=== PATIENT | female | born 1995 | race Caucasian/White ===

== ENCOUNTER → 2018-11-18 | Outpatient (REF) | payer OTHER ==
[2018-11-18 16:27] LABS: CHLAMYDIA DNA AMPLIFICATION NEGATIVE (NEGATIVE); GC DNA AMPLIFICATION NEGATIVE (NEGATIVE)
== END ==
LOC: M LAB REF 13:35
PROVIDERS: ATTEND Advanced Practice Midwife
DX: Z11.3 Encounter for screening for infections with a predominantly sexual mode of transmission (principal); Z12.4 Encounter for screening for malignant neoplasm of cervix; R87.610 Atypical squamous cells of undetermined significance on cytologic smear of cervix (ASC-US)
CPT/HCPCS: 87491; 87591; 87624; G0123

== ENCOUNTER → 2018-12-22 | Outpatient (CLI) | payer OTHER | LOC: M SMT 09:28 | PROVIDERS: ATTEND Advanced Practice Midwife | DX: Z13.79 Encounter for other screening for genetic and chromosomal anomalies (principal) ==

== ENCOUNTER → 2019-01-05 | Outpatient (CLI) | payer OTHER ==
[2019-01-05 15:17] LABS: CHLAMYDIA DNA AMPLIFICATION NEGATIVE (NEGATIVE); GC DNA AMPLIFICATION NEGATIVE (NEGATIVE)
[2019-01-05 18:14] LABS: BASO % 0.3 % (0.0-1.0); EOS # 0.1 10^3/uL (0.0-0.50); EOS % 0.8 % (0.0-3.0); HEMATOCRIT 40.4 % (36.0-47.0); HEMOGLOBIN 13.6 g/dl (12.0-15.5); LYMPH # 1.9 10^3/uL (1.5-6.5); LYMPH % 16.5 % (24.0-44.0); MEAN CORPUSCULAR HGB CONC 33.7 g/dl (32.0-36.5); MONO # 0.8 10^3/uL (0.0-0.8); MONO % 6.8 % (0.0-5.0); NEUTROPHILS # 8.8 10^3/uL (1.8-7.7); PLATELET COUNT, AUTOMATED 309 10^3/uL (150-450); RED BLOOD COUNT 4.54 10^6/uL (4.00-5.40); WHITE BLOOD COUNT 11.7 10^3/uL (4.0-10.0)
[2019-01-06 22:57] LABS: HIV 1&2 SCREEN CENTAUR NEGATIVE (NEGATIVE)
[2019-01-07 12:40] LABS: HEPATITIS C VIRUS ABY INDEX < 0.0 INDEX (<0.8); RUBELLA IgG QUALITATIVE IMMUNE (IMMUNE)
== END ==
LOC: M SMT 11:07
PROVIDERS: ATTEND Advanced Practice Midwife
DX: Z34.81 Encounter for supervision of other normal pregnancy, first trimester (principal); Z3A.00 Weeks of gestation of pregnancy not specified

== ENCOUNTER → 2019-03-07 | Outpatient (CLI) | payer OTHER ==
[~2019-03-07] MED LIST: MACR100C43 PO
== END ==
LOC: M SMT 13:05
PROVIDERS: ATTEND Advanced Practice Midwife
DX: Z36.89 Encounter for other specified antenatal screening (principal)

== ENCOUNTER → 2019-03-25 | Outpatient (CLI) | payer OTHER ==
--- NOTE | 2019-03-25 16:11 | REP ---
Clinical: Anatomical evaluation. Comparison: None . Findings: Examination demonstrates a single live intrauterine in cephalic presentation. motion is identified by technologist. Placenta is noted the anterior and grade no on without evidence for placenta previa or abruption. Amniotic fluid volume is normal. Cervix measures 4.3 cm in length and appears closed. No evidence for nuchal cord. Gestational age by LMP 18 weeks 0 days with TRISTON 08/26/2019 . Gestational age by current measurements 18 weeks 6 days with TRISOTN 08/20/2019 . FHR equals 153 beats per minute. BPD 4.4 cm 19 weeks 3 days HC 18.9 cm 18 weeks 5 days AC 12.7 cm 18 weeks 2 days FL 3.1 cm 19 weeks 4 days HL 2.7 cm 18 weeks 5 days HC/AC ratio 1.26 Estimated weight 261 grams ( 82 percentile). Anatomical assessment demonstrates normal structures including cranium, choroid plexus, cavum, cerebellum/posterior fossa, facial features, lungs, four-chamber heart/ventricular outflow tracts, diaphragm, stomach, cord insertion/three-vessel cord, kidneys/bladder, spine, and extremities. Impression: Single live intrauterine in cephalic presentation demonstrating appropriate interval growth. Anatomical assessment is complete and normal. No gross abnormalities are identified. Electronically Signed by David Patterson MD 03/25/2019 04:02 P
== END ==
LOC: M RAD 14:41
PROVIDERS: ATTEND Advanced Practice Midwife
DX: Z34.02 Encounter for supervision of normal first pregnancy, second trimester (principal); Z3A.18 18 weeks gestation of pregnancy

== ENCOUNTER → 2019-05-25 | Outpatient (CLI) | payer OTHER ==
[2019-05-25 17:30] LABS: HEMATOCRIT 34.4 % (36.0-47.0); HEMOGLOBIN 11.3 g/dl (12.0-15.5); MEAN CORPUSCULAR HEMOGLOBIN 29.5 pg (27.0-33.0); MEAN CORPUSCULAR HGB CONC 32.8 g/dl (32.0-36.5); MEAN CORPUSCULAR VOLUME 89.8 fl (80.0-96.0); PLATELET COUNT, AUTOMATED 263 10^3/uL (150-450); RED BLOOD COUNT 3.83 10^6/uL (4.00-5.40); WHITE BLOOD COUNT 14.7 10^3/uL (4.0-10.0)
== END ==
LOC: M SMT 12:59
PROVIDERS: ATTEND Advanced Practice Midwife
DX: O99.612 Diseases of the digestive system complicating pregnancy, second trimester (principal); Z3A.00 Weeks of gestation of pregnancy not specified

== ENCOUNTER 2019-06-12 12:44 | Emergency (ER) | payer OTHER ==
[~2019-06-12] VITALS: Ht 157.5 cm; Wt 67.7 kg
[2019-06-12 13:31] LABS: BASO # 0.1 10^3/uL (0.0-0.2); BASO % 0.3 % (0.0-1.0); EOS # 0.1 10^3/uL (0.0-0.5); EOS % 0.5 % (0.0-3.0); HEMATOCRIT 37.4 % (36.0-47.0); HEMOGLOBIN 12.2 g/dl (12.0-15.5); LYMPH # 1.8 10^3/uL (1.5-5.0); LYMPH % 11.8 % (24.0-44.0); MEAN CORPUSCULAR HGB CONC 32.6 g/dl (32.0-36.5); MONO % 6.1 % (0.0-5.0); NEUTROPHILS # 12.4 10^3/uL (1.5-8.5); NEUTROPHILS % 80.5 % (36.0-66.0); PLATELET COUNT, AUTOMATED 271 10^3/uL (150-450); WHITE BLOOD COUNT 15.5 10^3/uL (4.0-10.0)
[2019-06-12 13:52] LABS: ALT/SGPT 20 U/L (12-78); BILIRUBIN,DIRECT 0.1 MG/DL (0.0-0.2); BILIRUBIN,TOTAL 0.4 MG/DL (0.2-1.0); BLOOD UREA NITROGEN 6 MG/DL (7-18); CALCIUM LEVEL 8.6 MG/DL (8.5-10.1); CARBON DIOXIDE LEVEL 25 MEQ/L (21-32); CHLORIDE LEVEL 108 MEQ/L (98-107); CREATININE FOR GFR 0.64 MG/DL (0.55-1.30); GLOMERULAR FILTRATION RATE > 60.0 (>60); GLUCOSE, FASTING 69 MG/DL (70-100); LIPASE 130 U/L (73-393); POTASSIUM SERUM 4.1 MEQ/L (3.5-5.1); SODIUM LEVEL 140 MEQ/L (136-145); TOTAL PROTEIN 6.7 GM/DL (6.4-8.2)
[2019-06-12] MEDS ORDERED: NS 1,000 ML IV ONE (14:30)
[2019-06-12] MEDS ORDERED: ONDANSETRON 4MG/2ML VIAL (J2405) IV ONE (14:30)
[2019-06-12] MEDS ORDERED: NITROFURANTOIN (MACROBID) 100 MG CAP PO ONE (15:30)
[2019-06-12] MEDS ORDERED: MACR100C43 PO (15:42)
[2019-06-12 15:51] VITALS: BP 111/70
[2019-06-12 16:36] LABS: CHLAMYDIA DNA AMPLIFICATION NEGATIVE (NEGATIVE); GC DNA AMPLIFICATION NEGATIVE (NEGATIVE)
--- NOTE | 2019-06-13 06:52 | REP ---
Obstetric sonography: History: Abdomen pain. 30 weeks. Findings: Scanning through the gravid uterus demonstrates a viable cephalic intrauterine fetus. motion is observed and heart rate is recorded at 137 beats per minute. An anterior grade 1 placenta is seen without evidence of previa or abruption. Amniotic fluid is subjectively normal. Closed cervical length is measured transabdominally at 3.4 cm. No extrauterine abnormalities observed. There has been appropriate interval growth. The following anatomic structures are again identified and felt to be unremarkable: cranium, cavum, lungs, four-chamber heart with left ventricular outflow tract view, diaphragm, left-sided stomach, abdominal wall cord insertion, three-vessel umbilical cord, kidneys and bladder, lower extremities. Biometry chart: BPD 7.5 cm = 30 weeks 1 day Head circumference 27.8 cm = 30 weeks 3 days Abdominal circumference 25.4 cm = 29 weeks 4 days Femur length 5.8 cm = 30 weeks 3 days Humeral length 5.2 cm = 30 weeks 1 day HC/AC ratio normal 1.09. Cephalic index normal 0.75. Estimated weight 1492 grams, 3 pounds 4 ounces, 58th percentile for 29 weeks 2 days. Amniotic fluid index normal 9.6 cm. S/D ratio in the umbilical cord artery by Doppler normal 2.83. Impression: Viable single intrauterine gestation at 30 weeks 1 day by today's composite sonographic criteria. Expected gestational age estimate based on prior sonography is 29 weeks 2 days. TRISTON by prior sonography August 26, 2019. There has been appropriate interval growth. Anterior placenta grade 1 without evidence of previa or abruption. Electronically Signed by Frederic Dasilva MD 06/13/2019 08:36 A
== END 2019-06-12 16:03 | disposition home or self-care (01) ==
LOC: M ED 12:44
DX: O23.43 Unspecified infection of urinary tract in pregnancy, third trimester (principal); O21.9 Vomiting of pregnancy, unspecified; Z87.42 Personal history of other diseases of the female genital tract; Z87.440 Personal history of urinary (tract) infections; Z3A.28 28 weeks gestation of pregnancy
CPT/HCPCS: 76816; 76820; 80048; 80076; 81001; 83690; 85025; 87086; 87210; 87661; 96374; 99284; J2405

== ENCOUNTER → 2019-06-13 | Outpatient (CLI) | payer OTHER | LOC: M LAB 08:06 | PROVIDERS: ATTEND Advanced Practice Midwife | DX: Z34.81 Encounter for supervision of other normal pregnancy, first trimester (principal) ==

== ENCOUNTER → 2019-07-08 | Outpatient (CLI) | payer OTHER ==
--- NOTE | 2019-07-08 16:41 | REP ---
OB ULTRASOUND: Real-time sonographic evaluation of gravid uterus performed. There is a single living intrauterine gestation, estimated gestational age 33 weeks 0 days, EDC 08/26/2019. Today's measurements indicate appropriate growth. BPD 90 mm = 36 weeks 2 days, over 95th percentile HC 306 mm = 34 weeks 1 day, 67th percentile AC 277 mm = 31 weeks 5 days, 31st percentile Femur length 64 mm = 33 weeks 0 days, 50th percentile HC/AC ratio 1.11, within normal range. Estimated weight 2040 grams, 39th percentile. Cervix is closed and measures 3.0 cm in length. heart rate 149 beats per minute. Amniotic fluid within normal limits, JOHN 10.7 within normal range of 8.3-24.5. S/D ratio 2.44 within normal range of 2.0-3.0. RI 0.59 within normal range of 0.59-0.75. Visualized anatomy includes four-chamber heart, ventricular outflow tracts, stomach, kidneys, and bladder, which are all grossly unremarkable. position vertex. Placenta anterior and grade 1 with no previa or abruption. Electronically Signed by Chilo Coelho MD 07/11/2019 04:13 P
== END ==
LOC: M RAD 11:29
PROVIDERS: ATTEND Obstetrics & Gynecology
DX: Z34.82 Encounter for supervision of other normal pregnancy, second trimester (principal)

== ENCOUNTER → 2019-07-25 | Outpatient (REF) | payer OTHER | LOC: M SFHCWAGY 10:01 | PROVIDERS: ATTEND Obstetrics & Gynecology | DX: Z36.85 Encounter for antenatal screening for Streptococcus B (principal) ==

== ENCOUNTER → 2019-08-18 | Outpatient (CLI) | payer OTHER ==
[~2019-08-18] MED LIST changes: +ACET-683 PO; +IBUP80TA PO
[2019-08-18 13:56] LABS: HEMOGLOBIN 12.1 g/dl (12.0-15.5); MEAN CORPUSCULAR HEMOGLOBIN 29.2 pg (27.0-33.0); MEAN CORPUSCULAR HGB CONC 33.6 g/dl (32.0-36.5); PLATELET COUNT, AUTOMATED 283 10^3/uL (150-450); RED BLOOD COUNT 4.14 10^6/uL (4.00-5.40); WHITE BLOOD COUNT 12.6 10^3/uL (4.0-10.0)
[2019-08-18 14:14] LABS: ALT/SGPT 11 U/L (12-78); BILIRUBIN,TOTAL 0.3 MG/DL (0.2-1.0); CREATININE FOR GFR 0.68 MG/DL (0.55-1.30); GLOMERULAR FILTRATION RATE > 60.0 (>60); LDH LACTATE DEHYDROGENASE 176 U/L (84-246); URIC ACID 4.9 MG/DL (2.6-6.0)
[2019-08-18 14:16] LABS: TOTAL PROTEIN,RANDOM URINE 29.1 MG/DL (0.0-12.0)
== END ==
LOC: M PLALAB 11:15
PROVIDERS: ATTEND Advanced Practice Midwife
DX: O16.3 Unspecified maternal hypertension, third trimester (principal)

== ENCOUNTER 2019-08-19 18:11 | Inpatient (IN) | payer OTHER ==
[~2019-08-19] VITALS: Ht 160 cm; Wt 71.2 kg
[~2019-08-19 18:11] MED LIST changes: -ACET-683 PO; -IBUP80TA PO
[2019-08-19 18:48] VITALS: BP 105/64
[2019-08-19] MEDS ORDERED: LACTATED RINGER'S 1000 ML IV STA ×2 (18:55→19:32)
[2019-08-19 19:23] LABS: HEMATOCRIT 35.9 % (36.0-47.0); HEMOGLOBIN 11.7 g/dl (12.0-15.5); MEAN CORPUSCULAR HEMOGLOBIN 28.3 pg (27.0-33.0); MEAN CORPUSCULAR HGB CONC 32.6 g/dl (32.0-36.5); MEAN CORPUSCULAR VOLUME 86.9 fl (80.0-96.0); PLATELET COUNT, AUTOMATED 265 10^3/uL (150-450); RED BLOOD COUNT 4.13 10^6/uL (4.00-5.40); WHITE BLOOD COUNT 12.9 10^3/uL (4.0-10.0)
[2019-08-19] MEDS: miSOPROStol 50 MCG 1/2 TAB (S0191) PO SCH (19:43)
[2019-08-19 19:50] LABS: ALT/SGPT 11 U/L (12-78); BILIRUBIN,TOTAL 0.3 MG/DL (0.2-1.0); BLOOD UREA NITROGEN 10 MG/DL (7-18); CARBON DIOXIDE LEVEL 23 MEQ/L (21-32); CHLORIDE LEVEL 110 MEQ/L (98-107); CREATININE FOR GFR 0.69 MG/DL (0.55-1.30); GLOMERULAR FILTRATION RATE > 60.0 (>60); GLUCOSE, FASTING 69 MG/DL (70-100); POTASSIUM SERUM 3.8 MEQ/L (3.5-5.1); SODIUM LEVEL 139 MEQ/L (136-145); TOTAL PROTEIN 6.5 GM/DL (6.4-8.2)
[2019-08-19 19:59] VITALS: BP 123/81
--- NOTE | 2019-08-19 20:10 | HPEPDOC ---
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 BREAST: . ABDOMEN: Gravid and non-tender to touch. FETUS: Is vertex (VTX) by sterile vaginal examination (SVE), fetus is vertex (VTX) by [place]. HEART RATE: Regular rate and rhythm. LUNGS: Clear to auscultation (CTA). EXTREMITIES: No edema. No clonus. Deep tendon reflexes (DTRs) + 2. Vital Signs/I&O Vital Signs Date Time Temp Pulse Resp B/P (MAP) Pulse Ox O2 Delivery O2 Flow Rate FiO2 08/19/19 18:48 98.1 103 18 105/64 (78) Laboratory Data 24H LABS Laboratory Tests 2 08/19/19 18:22: Serology Scanned Report Hepatitis B Testing 08/19/19 19:04: Nucleated Red Blood Cells % (auto) 0.0 08/19/19 19:20: Bedside Glucose (Misc Panel) 72 CBC/BMP Laboratory Tests 08/19/19 19:04 Pertinent Laboratoy Data Blood Type: A+ RBC Antibody Screen: Negative HIV: Negative Hepatitis B: Negative Hepatitis C: Negative Rapid Plasma Reagin: Nonreactive Rubella: Immune Chlamydia/Gonorrhea: Negative Group B Streptococcus: Negative Quad Screen Test: Negative Glucose Tolerance Test: 135 (3h bos831, 167, 159) Anatomy Ultrasound Ultrasound Date: Mar 25, 2019 Placenta Location: Anterior Normal Anatomy: Yes Placenta Previa: No Estimated Weight (grams): 261 Other Ultrasounds 01/05/19 dating & viability: 6wk+5days gestation Steroid Therapy Steroid Therapy: No Vaginal Examination Dilation: 2cm Effacement: 80% Station: -2 Cervical Consistency: Medium Cervical Position: Middle Presentation: Cephalic presentation Position: Vertex (occiput) Assessment Heart Rate (FHR): 140 Variability: Moderate Accelerations: Positive Decelerations: None Tocometer Contractions: Yes Frequency: irregular, every 2-5 min. Duration: greater than 60 seconds Strength: other (patient unaware of contractions) Assessment/Plan Assessment Sarah Naik is a 24-year-old (G)1 para (P)0-0-0-0 at 39+0 weeks by 6- week ultrasound. Presents to Labor and Delivery (L&D) for induction of labor. Patient is a diet-controlled gestational diabetic. Had one elevated blood pressure at her last visit 08/18/2019. Plan Admit and orient. 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 Diet: regular. Group B Streptococcus (GBS) negative. Labs and intravenous (IV) per unit protocol. Counseled on misoprostol, pitocin and induction of labor (IOL). Lactated Ringers (LR): Bolus 500 mL, then at 125 mL/hr. BG monitoring every 6 hours and PRN. Plans to labor ad saul Anticipate normal spontaneous delivery (). C-S as appropriate. Jaci Merritt CNM Aug 19, 2019 20:10
[2019-08-19] MEDS ORDERED: hydrOXYzine 50 MG TAB PO SCH (21:00)
[2019-08-19 21:59] VITALS: BP 131/92
[2019-08-19 22:48] VITALS: BP 118/73
[2019-08-20] VITALS (28 sets, daily range): BP systolic 100–139; BP diastolic 55–82
[2019-08-20] MEDS: miSOPROStol 50 MCG 1/2 TAB (S0191) PO SCH ×2 (00:33→04:26)
[2019-08-20] MEDS ORDERED: LR 1,000 ML IV SCH (07:52)
--- NOTE | 2019-08-20 07:54 | IPNPDOC ---
Text Note Date of Service The patient was seen on 08/20/19. NOTE S: patient uncomfortable, has received 1 dose of miso. feeling contractions O: SVE: 3-4/80/-2 FHR: 150 bpm, mod variability, accels, no decels, Cat I [place]: ctx q 3-5 minutes A: 25 y.o. , induction of labor at 39 weeks for gestational diabetes. P: 1. Augment labor with pitocin 2. status reassuring 3. Anticipate 4. Up ad saul 5. GBS negative 6. C-S as appropriate VS,Fishbone, I+O VS, Fishbone, I+O Laboratory Tests 08/19/19 19:04 Vital Signs Date Time Temp Pulse Resp B/P (MAP) Pulse Ox O2 Delivery O2 Flow Rate FiO2 08/20/19 06:08 98.5 79 18 115/67 (83) GME ATTESTATION GME ATTESTATION My faculty preceptor for this patient encounter was physically present during the encounter and was fully available. All aspects of the patient interview, examination, medical decision making process, and medical care plan development were reviewed and approved by the faculty preceptor. The faculty preceptor is aware and concurs with the plan as stated in the body of this note and will attest to such by his/her cosignature. GEORGE JOHNSON D.O. Aug 20, 2019 07:54
[2019-08-20] MEDS ORDERED: OXYTOCIN DRIP 30 UNITS in IV 1 EA IV SCH ×2 (08:00→15:45)
[2019-08-20] MEDS ORDERED: PROMETHAZINE INJ 25 MG/ML VIAL (J2550) IV PRN (08:15)
[2019-08-20] MEDS ORDERED: BUTORPHANOL 2 MG/ML INJ (J0595) IV PRN (08:15)
[2019-08-20] MEDS ORDERED: FENTANYL 2MCG/ML ROPIVACAINE 0.2% IN 0.9% NACL 100ML IVBAG As Ordered ONE (10:27)
[2019-08-20] MEDS ORDERED: FENTANYL/ROPIVACAINE/NACL BAG 100 ML EPIDURAL SCH (11:30)
[2019-08-20] MEDS ORDERED: REFRIGERATOR IV KEYS XX PRN (11:30)
[2019-08-20] MEDS ORDERED: ePHEDrine SULFATE 25 MG/5 ML(5MG/ML) SYRINGE IV PRN (11:30)
[2019-08-20] MEDS ORDERED: ONDANSETRON 4MG/2ML VIAL (J2405) IV PRN (11:30)
[2019-08-20] MEDS ORDERED: EPIDURAL/PCA KEYS XX PRN (11:30)
[2019-08-20] MEDS ORDERED: NALOXONE INJ 0.4 MG/1 ML VIAL (J2310) IV PRN (11:30)
[2019-08-20] MEDS ORDERED: EPIDURAL COMMENT XX SCH (11:30)
[2019-08-20] MEDS ORDERED: diphenhydrAMINE INJ 50MG/ML VIAL (J1200) IV PRN (11:30)
--- NOTE | 2019-08-20 13:22 | IPNPDOC ---
Text Note Date of Service The patient was seen on 08/20/19. NOTE S: patient comfortable with epidural. SROM. O: SVE: 10/100/+1, DARIANA FHR: 125 bpm, mod variability, accels, occasional variables, currently Cat I [place]: ctx q 2-5 minutes A: 25 y.o. , induction of labor at 39 weeks for gestational diabetes. P: 1. Augment labor with pitocin 2. status reassuring 3. Anticipate 4. Comfortable with epidural 5. GBS negative 6. C-S as appropriate VS,Fishbone, I+O VS, Fishbone, I+O Laboratory Tests 08/19/19 19:04 Vital Signs Date Time Temp Pulse Resp B/P (MAP) Pulse Ox O2 Delivery O2 Flow Rate FiO2 08/20/19 11:14 71 18 110/70 (83) 08/20/19 10:35 97.8 GEORGE JOHNSON D.O. Aug 20, 2019 13:22
[2019-08-20] MEDS ORDERED: MEASLES,MUMPS,RUBELLA VACCINE INJ (MMR-II) (90707) SC SCH (15:30)
[2019-08-20] MEDS ORDERED: DOCUSATE SODIUM 100 MG CAP PO PRN (15:30)
[2019-08-20] MEDS ORDERED: ACETAMINOPHEN TAB 650MG DOSE (2X325MG) PO PRN (15:30)
[2019-08-20] MEDS ORDERED: METHYLERGONOVINE MALEATE 0.2 MG TAB PO PRN (15:30)
[2019-08-20] MEDS ORDERED: RHOGAM 300 MCG (1500 IU) INJ (J2790) IM SCH (15:30)
[2019-08-20] MEDS ORDERED: IBUPROFEN 600 MG TAB PO PRN (15:30)
[2019-08-20] MEDS ORDERED: DIBUCAINE 1% OINTMENT 30GM TOP PRN (15:30)
[2019-08-20] MEDS ORDERED: ACETAMINOPHEN 500 MG TAB PO PRN (15:30)
--- NOTE | 2019-08-20 17:31 | DN ---
DATE: 08/20/2019 PREDELIVERY DIAGNOSIS: A 39-weeks 1 day gestation. POSTDELIVERY DIAGNOSIS: Delivered. PROCEDURE: Spontaneous vaginal delivery. PROVIDER: Nupur Vargas DO, PGY3. ROLLOFF TRUCK DRIVER: Dr. Kwan Packer MD ANESTHESIA: Epidural. ESTIMATED BLOOD LOSS: 200 mL. FINDINGS: Female infant weighing 6 pounds 4 ounces, or 2830 grams, scores 8 and 9. DELIVERY SUMMARY: After a short second stage the patient spontaneously delivered a 6-pound 4-ounce female weighing 2830 grams under epidural anesthesia at 1455 hours. The delivered left occiput anterior, restituting to left occiput transverse, and there was one nuchal times one loose, which was reduced. The shoulders delivered with ease followed by the corpus. The infant cried spontaneously and was handed to the mother. scores were 8 and 9. The cord was doubly clamped and cut by the father of baby. The placenta was delivered spontaneously via Shoemaker mechanism at 1505 hours and appeared to be intact. A 3-vessel cord was noted. The patient received intravenous (IV) Pitocin immediately after delivery of the placenta. The patient had small bilateral labial abrasions and a 1-degree laceration of the perineum that was repaired with 3-0 Rapide in the usual fashion. Sponge counts were correct. The parents have named their baby
[2019-08-20] MEDS: IBUPROFEN 800 MG TAB PO PRN (23:42)
[2019-08-21 06:00] VITALS: BP 109/68
[2019-08-21] MEDS: PRENATAL VITAMINS CHEWABLE TABLET PO SCH (08:07)
[2019-08-21] MEDS ORDERED: ADACEL/BOOSTRIX VACCINE (DIPHTH/PERTUSS/ACELL/TETANUS)0.5ML SYR (90715) IM ONE (09:00)
[2019-08-21 17:43] VITALS: BP 108/58
[2019-08-21] MEDS: IBUPROFEN 800 MG TAB PO PRN (23:24)
[2019-08-22 06:00] VITALS: BP 118/61
[2019-08-22] MEDS ORDERED: IBUP80TA PO (06:44)
[2019-08-22] MEDS ORDERED: ACET-683 PO (06:44)
[2019-08-22] MEDS: PRENATAL VITAMINS CHEWABLE TABLET PO SCH (07:28)
[2019-08-22] MEDS: IBUPROFEN 800 MG TAB PO PRN (11:30)
--- NOTE | 2019-08-22 13:47 | DN ---
DATE OF DELIVERY: 08/20/2019 PREDELIVERY DIAGNOSES: Term , labor. POSTDELIVERY DIAGNOSIS: Delivered. PROCEDURE: Spontaneous vaginal delivery. SUPERINTENDENT TRACK: Kwan Packer MD LIFE SKILLS INSTRUCTOR: Nupur Vargas DO ANESTHESIA: Epidural. ESTIMATED BLOOD LOSS: 300 mL. FINDINGS: 6 pound 4 ounce female infant, scores 8 and 9. DELIVERY SUMMARY: After approximately a 2 hour second stage, the patient had spontaneous delivery of a 6 pound 4 ounce female infant, scores 8 and 9, under epidural anesthesia. There was a nuchal cord times one that reduced manually. The shoulders delivered with ease. The was handed to the mother and cried immediately. The cord was doubly clamped and cut. The placenta delivered spontaneously and appeared to be intact. The patient received IV Pitocin immediately after delivery of the placenta. A first degree perineal laceration was repaired with #3-0 Vicryl in the usual fashion. Sponge and needle counts were correct.
== END 2019-08-22 12:00 | disposition home or self-care (01) | DRG 807 ==
LOC: M LDI 18:11 → M OBS 08-20 16:46
PROVIDERS: ADMIT Advanced Practice Midwife; ATTEND Specialist
PROC: 3E0P7GC Introduction of Other Therapeutic Substance into Female Reproductive, Via Natural or Artificial Opening (ICD-10-PCS; 2019-08-19)
PROC: 10E0XZZ Delivery of Products of Conception, External Approach (ICD-10-PCS; principal; 2019-08-20)
PROC: 0HQ9XZZ Repair Perineum Skin, External Approach (ICD-10-PCS; 2019-08-20)
DX: O24.420 Gestational diabetes mellitus in childbirth, diet controlled (principal); Z37.0 Single live birth; Z3A.39 39 weeks gestation of pregnancy; O69.81X0 Labor and delivery complicated by cord around neck, without compression, not applicable or unspecified; O70.0 First degree perineal laceration during delivery

== ENCOUNTER → 2020-08-07 | Outpatient (REF) | payer OTHER ==
[~2020-08-07] MED LIST changes: +ACET-683 PO; +IBUP80TA PO
== END ==
LOC: M LAB REF 16:51
PROVIDERS: ATTEND Physician Assistant
DX: N39.0 Urinary tract infection, site not specified (principal)

== ENCOUNTER → 2021-01-10 | Outpatient (REF) | payer OTHER, SELFPAY | LOC: M SFHCWAGY 10:17 | PROVIDERS: ATTEND Advanced Practice Midwife | DX: Z01.419 Encounter for gynecological examination (general) (routine) without abnormal findings (principal); Z12.4 Encounter for screening for malignant neoplasm of cervix; Z77.9 Other contact with and (suspected) exposures hazardous to health ==

== ENCOUNTER → 2022-05-09 | Outpatient (CLI) | payer OTHER ==
[2022-05-09 15:51] LABS: BASO % 0.4 % (0.0-1.0); EOS % 0.3 % (0.0-3.0); HEMATOCRIT 40.1 % (36.0-47.0); HEMOGLOBIN 13.4 g/dl (12.0-15.5); LYMPH # 2.3 10^3/uL (1.5-5.0); LYMPH % 22.3 % (24.0-44.0); MEAN CORPUSCULAR HEMOGLOBIN 29.5 pg (27.0-33.0); MEAN CORPUSCULAR HGB CONC 33.4 g/dl (32.0-36.5); MEAN CORPUSCULAR VOLUME 88.3 fl (80.0-96.0); MONO # 0.9 10^3/uL (0.0-0.8); MONO % 8.3 % (2.0-8.0); NEUTROPHILS # 7.1 10^3/uL (1.5-8.5); NEUTROPHILS % 68.4 % (36.0-66.0); PLATELET COUNT, AUTOMATED 390 10^3/uL (150-450); RED BLOOD COUNT 4.54 10^6/uL (4.00-5.40); WHITE BLOOD COUNT 10.4 10^3/uL (4.0-10.0)
[2022-05-09 16:25] LABS: ALBUMIN 4.2 GM/DL (3.2-5.2); ALT/SGPT 21 U/L (12-78); BILIRUBIN,DIRECT 0.1 MG/DL (0.0-0.2); BILIRUBIN,TOTAL 0.5 MG/DL (0.2-1.0); BLOOD UREA NITROGEN 11 MG/DL (7-18); CALCIUM LEVEL 9.8 MG/DL (8.5-10.1); CARBON DIOXIDE LEVEL 29 MEQ/L (21-32); CHLORIDE LEVEL 109 MEQ/L (98-107); CREATININE FOR GFR 0.89 MG/DL (0.55-1.30); GLOMERULAR FILTRATION RATE > 60.0 (>60); GLUCOSE, FASTING 82 MG/DL (70-100); LIPASE 89 U/L (73-393); POTASSIUM SERUM 4.1 MEQ/L (3.5-5.1); SODIUM LEVEL 142 MEQ/L (136-145); TOTAL PROTEIN 7.5 GM/DL (6.4-8.2)
== END ==
LOC: M LAB 14:59
PROVIDERS: ATTEND Physician Assistant
DX: R11.10 Vomiting, unspecified (principal)

== ENCOUNTER → 2022-06-03 | Outpatient (REF) | payer OTHER | LOC: M SFHCWAGY 10:13 | PROVIDERS: ATTEND Obstetrics & Gynecology | DX: Z12.4 Encounter for screening for malignant neoplasm of cervix (principal) ==

== ENCOUNTER → 2022-12-23 | Outpatient (REF) | payer OTHER | LOC: M PLALAB 14:59 | PROVIDERS: ATTEND Advanced Practice Midwife | DX: Z53.9 Procedure and treatment not carried out, unspecified reason (principal) ==

== ENCOUNTER → 2023-01-02 | Outpatient (CLI) | payer OTHER ==
[2023-01-02 18:57] LABS: HEMATOCRIT 37.5 % (36.0-47.0); HEMOGLOBIN 12.8 g/dl (12.0-15.5); MEAN CORPUSCULAR HEMOGLOBIN 30.3 pg (27.0-33.0); MEAN CORPUSCULAR HGB CONC 34.1 g/dl (32.0-36.5); MEAN CORPUSCULAR VOLUME 88.7 fl (80.0-96.0); PLATELET COUNT, AUTOMATED 317 10^3/uL (150-450); RED BLOOD COUNT 4.23 10^6/uL (4.00-5.40)
[2023-01-02 19:49] LABS: HIV 1&2 SCREEN NEGATIVE (NEGATIVE)
[2023-01-02 19:58] LABS: HEPATITIS C VIRUS ABY INDEX 0.1 INDEX (<0.8)
[2023-01-02 21:12] LABS: GC DNA AMPLIFICATION NEGATIVE (NEGATIVE)
== END ==
LOC: M PLALAB 15:37
PROVIDERS: ATTEND Advanced Practice Midwife
DX: Z34.91 Encounter for supervision of normal pregnancy, unspecified, first trimester (principal)

== ENCOUNTER → 2023-03-04 | Outpatient (CLI) | payer OTHER ==
[~2023-03-04] MED LIST changes: +REGL5TAB2 PO
== END ==
LOC: M WHC 09:36
PROVIDERS: ATTEND Advanced Practice Midwife
DX: O32.1XX0 Maternal care for breech presentation, not applicable or unspecified (principal); Z3A.19 19 weeks gestation of pregnancy

== ENCOUNTER 2023-03-06 11:42 | Emergency (ER) | payer OTHER ==
[~2023-03-06] VITALS: Ht 160 cm; Wt 63.1 kg
[~2023-03-06 11:42] MED LIST changes: -REGL5TAB2 PO
[2023-03-06 11:44] VITALS: BP 112/71; TEMP 98.4; O2SAT 97
[2023-03-06] MEDS ORDERED: diphenhydrAMINE 25MG CAP PO ONE (17:00)
[2023-03-06] MEDS ORDERED: METOCLOPRAMIDE 5 MG TAB PO ONE (17:00)
[2023-03-06] MEDS ORDERED: ACETAMINOPHEN 500 MG TAB PO ONE (17:00)
[2023-03-06] MEDS ORDERED: METOCLOPRAMIDE 10MG TAB PO ONE (17:10)
[2023-03-06] MEDS ORDERED: REGL5TAB2 PO (17:10)
== END 2023-03-06 17:35 | disposition home or self-care (01) ==
LOC: M ED 11:42
DX: O9A.212 Injury, poisoning and certain other consequences of external causes complicating pregnancy, second trimester (principal); S06.0X0A Concussion without loss of consciousness, initial encounter; W50.0XXA Accidental hit or strike by another person, initial encounter; Y92.009 Unspecified place in unspecified non-institutional (private) residence as the place of occurrence of the external cause; Y93.89 Activity, other specified; Y99.8 Other external cause status; Z3A.19 19 weeks gestation of pregnancy; O24.410 Gestational diabetes mellitus in pregnancy, diet controlled

== ENCOUNTER 2023-05-03 17:12 | Outpatient (CLI) | payer OTHER ==
[~2023-05-03] VITALS: Ht 157.5 cm; Wt 68.2 kg
[~2023-05-03 17:12] MED LIST changes: +REGL5TAB2 PO
[2023-05-03 17:30] VITALS: BP 118/60
[2023-05-03] MEDS ORDERED: HOME MED LIST COMPLETE! XX SCH (17:30)
== END 2023-05-03 18:48 | disposition home or self-care (01) ==
LOC: M LDO 17:12
PROVIDERS: ATTEND Obstetrics & Gynecology
DX: O36.8120 Decreased fetal movements, second trimester, not applicable or unspecified (principal); Z3A.27 27 weeks gestation of pregnancy
CPT/HCPCS: 59025; G0463

== ENCOUNTER → 2023-07-01 | Outpatient (REF) | payer OTHER | LOC: M SFHCWAGY 17:09 | PROVIDERS: ATTEND Obstetrics & Gynecology | DX: Z36.89 Encounter for other specified antenatal screening (principal); Z3A.36 36 weeks gestation of pregnancy ==

== ENCOUNTER 2023-07-21 08:23 | Inpatient (IN) | payer OTHER ==
[2023-07-21] VITALS (53 sets, daily range): BP systolic 87–130; BP diastolic 50–72; O2SAT 98
[~2023-07-21] VITALS: Ht 160 cm; Wt 70.0 kg
[2023-07-21] MEDS ORDERED: METHYLERGONOVINE MALEATE 0.2MG/ML 1ML VIAL IM PRN (08:35)
[2023-07-21] MEDS ORDERED: OXYTOCIN DRIP 30 UNITS in IV 1 EA IV PRN ×4 (08:35)
[2023-07-21] MEDS ORDERED: TRANEXAMIC ACID INJection 1,000 MG in NS 100 ML IV PRN (08:35)
[2023-07-21] MEDS ORDERED: LACTATED RINGER'S 1000 ML IV PRN (08:35)
[2023-07-21] MEDS ORDERED: CARBOPROST TROMETHAMINE 250 MCG/ML AMP IM PRN (08:35)
[2023-07-21] MEDS ORDERED: HOME MED LIST COMPLETE! XX SCH (09:10)
[2023-07-21] MEDS ORDERED: LR 1,000 ML IV SCH (09:25)
[2023-07-21] MEDS ORDERED: OXYTOCIN DRIP 30 UNITS in IV 1 EA IV SCH (09:25)
[2023-07-21] MEDS ORDERED: PENICILLIN G POTASSIUM 5 MU IV 5 MU in D5W MINI-BAG PLUS 100 ML IV STA (09:49)
[2023-07-21 10:03] LABS: HEMATOCRIT 31.2 % (36.0-47.0); HEMOGLOBIN 10.5 g/dl (12.0-15.5); MEAN CORPUSCULAR HEMOGLOBIN 27.9 pg (27.0-33.0); MEAN CORPUSCULAR HGB CONC 33.7 g/dl (32.0-36.5); MEAN CORPUSCULAR VOLUME 82.8 fl (80.0-96.0); PLATELET COUNT, AUTOMATED 254 10^3/uL (150-450); RED BLOOD COUNT 3.77 10^6/uL (4.00-5.40); WHITE BLOOD COUNT 12.7 10^3/uL (4.0-10.0)
[2023-07-21] MEDS: LR 1,000 ML IV SCH ×2 (12:18→16:04)
[2023-07-21] MEDS: PEN G POT 3,000,000 UNIT/50 ML 3,000,000 UNIT in IV 1 EA IV SCH ×2 (14:13→17:45)
[2023-07-21] MEDS ORDERED: EPIDURAL/PCA KEYS XX PRN (16:10)
[2023-07-21] MEDS ORDERED: LR 500 ML IV PRN (16:10)
[2023-07-21] MEDS ORDERED: diphenhydrAMINE 50MG/ML VIAL IV PRN (16:10)
[2023-07-21] MEDS ORDERED: ONDANSETRON 4MG 2ML VIAL IV PRN (16:10)
[2023-07-21] MEDS ORDERED: NALOXONE INJ 0.4MG/1ML VIAL IV PRN (16:10)
[2023-07-21] MEDS ORDERED: FENTANYL/ROPIVACAINE/NACL BAG 100 ML EPIDURAL SCH (16:10)
[2023-07-21] MEDS: ePHEDrine SULFATE 25 MG/5 ML(5MG/ML) SYRINGE IVP PRN ×3 (17:02→17:11)
[2023-07-21] MEDS ORDERED: ceFAZolin SOD 2 GM in IV 1 EA IV ONE ×2 (21:00→21:10)
[2023-07-21] MEDS ORDERED: RHOGAM 300MCG (1500IU) INJ IM SCH (21:05)
[2023-07-21] MEDS ORDERED: DOCUSATE SODIUM 100MG CAPSULE PO PRN (21:05)
[2023-07-21] MEDS ORDERED: DIBUCAINE 1% OINTMENT 30GM TOP PRN (21:05)
[2023-07-21] MEDS ORDERED: METHYLERGONOVINE MALEATE 0.2 MG TAB PO PRN (21:05)
[2023-07-21] MEDS: ACETAMINOPHEN 500 MG TAB PO PRN (22:54)
[2023-07-22] MEDS: IBUPROFEN 600MG TAB PO PRN ×2 (05:13→20:46)
[2023-07-22 06:00] VITALS: BP 111/63; O2SAT 97
[2023-07-22 07:20] LABS: HEMATOCRIT 28.3 % (36.0-47.0); HEMOGLOBIN 9.4 g/dl (12.0-15.5); MEAN CORPUSCULAR HEMOGLOBIN 28.1 pg (27.0-33.0); MEAN CORPUSCULAR HGB CONC 33.2 g/dl (32.0-36.5); MEAN CORPUSCULAR VOLUME 84.5 fl (80.0-96.0); PLATELET COUNT, AUTOMATED 222 10^3/uL (150-450); RED BLOOD COUNT 3.35 10^6/uL (4.00-5.40); WHITE BLOOD COUNT 12.3 10^3/uL (4.0-10.0)
[2023-07-22] MEDS: PRENATAL VITAMINS CHEWABLE TABLET PO SCH (08:00)
[2023-07-22] MEDS: ACETAMINOPHEN 500 MG TAB PO PRN (17:29)
[2023-07-22 18:00] VITALS: BP 119/60; O2SAT 97
[2023-07-23 06:00] VITALS: BP 111/68; O2SAT 98
[2023-07-23] MEDS: ACETAMINOPHEN 500 MG TAB PO PRN (08:53)
[2023-07-23] MEDS: PRENATAL VITAMINS CHEWABLE TABLET PO SCH (09:00)
[2023-07-23] MEDS ORDERED: MEASLES,MUMPS,RUBELLA VACCINE INJ (MMR-II) SC.IMMUN ONE (09:00)
[2023-07-23] MEDS ORDERED: ACET-683 PO (10:05)
[2023-07-23] MEDS ORDERED: IBUP-1022 PO (10:05)
== END 2023-07-23 11:46 | disposition home or self-care (01) | DRG 560 ==
LOC: M LDI 08:23 → M OBS 22:30
PROVIDERS: ADMIT Obstetrics & Gynecology; ATTEND Obstetrics & Gynecology
PROC: 10E0XZZ Delivery of Products of Conception, External Approach (ICD-10-PCS; principal; 2023-07-21)
PROC: 3E033VJ Introduction of Other Hormone into Peripheral Vein, Percutaneous Approach (ICD-10-PCS; 2023-07-21)
DX: O99.824 Streptococcus B carrier state complicating childbirth (principal); Z37.0 Single live birth; Z3A.39 39 weeks gestation of pregnancy

== ENCOUNTER 2023-10-03 19:47 | Emergency (ER) | payer MEDICAID, OTHER ==
[~2023-10-03] VITALS: Ht 160 cm; Wt 61.3 kg
[2023-10-03 19:47] VITALS: BP 119/67; O2SAT 96
[~2023-10-03 19:47] MED LIST changes: +IBUP-1022 PO
[2023-10-03] MEDS: IBUPROFEN 600MG TAB PO ONE (20:31)
[2023-10-03 21:42] VITALS: TEMP 99.6
== END 2023-10-03 21:58 | disposition home or self-care (01) ==
LOC: M ED 19:47
DX: U07.1 COVID-19 (principal)

== ENCOUNTER → 2025-03-14 | Outpatient (REF) | payer OTHER | LOC: M SFHCDERM 17:11 | PROVIDERS: ATTEND Nurse Practitioner Family | DX: D49.2 Neoplasm of unspecified behavior of bone, soft tissue, and skin (principal) ==

== ENCOUNTER → 2025-05-05 | Outpatient (REF) | payer OTHER ==
[~2025-05-05] MED LIST changes: -IBUP-1022 PO; +IBUP600T42 PO
== END ==
LOC: M PLALAB 12:09
PROVIDERS: ATTEND Student in an Organized Health Care Education/Training Program
DX: N92.6 Irregular menstruation, unspecified (principal)

== ENCOUNTER → 2025-05-05 | Outpatient (CLI) | payer OTHER ==
[2025-05-05 15:47] LABS: FREE T4 1.2 NG/DL (0.89-1.76); PROLACTIN 4.41 NG/ML
[2025-05-05 16:08] LABS: ESTIMATED AVERAGE GLUCOSE 97.0 MG/DL (60-110)
[2025-05-07 07:42] LABS: DEHYDROEPIANDROSTERONE SULFATE 266.0 mcg/dL (19-237)
[2025-05-10 17:11] LABS: TESTOSTERONE FREE (DIRECT) 2.1 pg/mL (0.1-6.4); TESTOSTERONE TOTAL FOR T&D 22.0 ng/dL (2-45)
[2025-05-17 18:20] LABS: 17 HYDROXY PROGESTERONE 46.0 ng/dL
== END ==
LOC: M PLALAB 12:17
PROVIDERS: ATTEND Student in an Organized Health Care Education/Training Program
DX: N92.6 Irregular menstruation, unspecified (principal)

== ENCOUNTER → 2025-05-31 | Outpatient (CLI) | payer OTHER | LOC: M PLALAB 09:44 | PROVIDERS: ATTEND Student in an Organized Health Care Education/Training Program | DX: Z3A.01 Less than 8 weeks gestation of pregnancy (principal); Z36.89 Encounter for other specified antenatal screening ==

== ENCOUNTER → 2025-07-11 | Outpatient (CLI) | payer OTHER, SELFPAY ==
[2025-07-11 19:11] LABS: PLATELET COUNT, AUTOMATED 366 10^3/uL (150-450)
[2025-07-11 20:55] LABS: HIV 1&2 SCREEN NEGATIVE (NEGATIVE)
[2025-07-11 21:04] LABS: HEPATITIS C VIRUS ABY INDEX 0.02 INDEX (<0.8)
== END ==
LOC: M PLALAB 16:32
PROVIDERS: ATTEND Advanced Practice Midwife
DX: Z34.81 Encounter for supervision of other normal pregnancy, first trimester (principal)